=== PATIENT | male | born 1950 | race Caucasian/White ===

== ENCOUNTER 2024-08-25 09:05 | Inpatient (IN) | payer MEDICARE, OTHER ==
[~2024-08-25] VITALS: Ht 175.3 cm; Wt 101.2 kg
[2024-08-25] MEDS: FERROUS GLUCONATE 324 MG TAB PO SCH (09:00)
[2024-08-25] MEDS: FENOFIBRATE 145 MG TABLET PO SCH (09:00)
[2024-08-25] MEDS: CLOPIDOGREL 75 MG TAB PO SCH (09:00)
[2024-08-25] MEDS ORDERED: BISACODYL 5 MG TAB PO PRN (11:55)
[2024-08-25] MEDS ORDERED: DEXTROSE 50% 50 ML SYRINGE IV PRN ×2 (11:55→15:30)
[2024-08-25] MEDS ORDERED: BISACODYL 10 MG SUPP PR PRN (11:55)
[2024-08-25] MEDS ORDERED: GLUCOSE 4 GM CHEW PO PRN ×2 (11:55→15:30)
[2024-08-25] MEDS ORDERED: MOM 30 ML SUSPENSION UDC PO PRN (11:55)
[2024-08-25] MEDS ORDERED: SIMETHICONE 80MG CHEW TAB PO PRN (11:55)
[2024-08-25] MEDS ORDERED: MAALOX 30 ML SUSP *UDC PO PRN (11:55)
[2024-08-25] MEDS ORDERED: GLUCAGON INJ 1 MG VIAL SC PRN ×2 (11:55→15:30)
[2024-08-25] MEDS ORDERED: ONDANSETRON 4MG ORAL DISINTEGRATING TAB SL PRN (12:20)
[2024-08-25] MEDS: INSULIN LISPRO (NovoLOG) PER UNIT SC SCH ×2 (15:00→18:25)
[2024-08-25 15:10] VITALS: BP 158/69; TEMP 98.5; O2SAT 99
[2024-08-25] MEDS ORDERED: BISO5TAB14 PO (15:26)
[2024-08-25] MEDS ORDERED: INSUH10VL SC (15:26)
[2024-08-25] MEDS ORDERED: THERTAB52 PO (15:26)
[2024-08-25] MEDS ORDERED: ISOS1TAB36 PO (15:26)
[2024-08-25] MEDS ORDERED: ZINC220T6 PO (15:26)
[2024-08-25] MEDS ORDERED: JARD1TAB3 PO (15:26)
[2024-08-25] MEDS ORDERED: CLOP75TA2 PO (15:26)
[2024-08-25] MEDS ORDERED: NITR4TASL SL (15:26)
[2024-08-25] MEDS ORDERED: PANT-23 PO (15:26)
[2024-08-25] MEDS ORDERED: MIRA3350 PO (15:26)
[2024-08-25] MEDS ORDERED: GABA-1490 PO (15:26)
[2024-08-25] MEDS ORDERED: FENO145T7 PO (15:26)
[2024-08-25] MEDS ORDERED: ROSU40TA81 PO (15:26)
[2024-08-25] MEDS ORDERED: ASPI81TA26 PO (15:26)
[2024-08-25] MEDS ORDERED: ACET-861 PO (15:26)
[2024-08-25] MEDS ORDERED: METH-1165 PO (15:26)
[2024-08-25] MEDS ORDERED: LANTINJ4 SC (15:26)
[2024-08-25] MEDS ORDERED: HOME MED LIST COMPLETE! XX SCH (15:30)
[2024-08-25] MEDS: ENOXAPARIN 40 MG/0.4 ML SYRINGE (J1650 PER 10MG) SC SCH (18:25)
[2024-08-25 20:00] VITALS: BP 155/69; TEMP 98.8; O2SAT 98
[2024-08-25] MEDS: SENNOSIDES/DOCUSATE SODIUM 8.6 MG/50MG TAB PO SCH (20:41)
[2024-08-25] MEDS: ROSUVASTATIN 10 MG TAB PO SCH (20:42)
[2024-08-25] MEDS: GABAPENTIN 300 MG CAP PO SCH (20:42)
[2024-08-25] MEDS: LanTUS (INSULIN GLARGINE INJ) 1 UNITS/0.01 ML SC SCH (20:43)
[2024-08-25] MEDS: ACETAMINOPHEN 500 MG TAB PO SCH (20:45)
[2024-08-25] MEDS ORDERED: INSULIN LISPRO (NovoLOG) PER UNIT SC SCH (21:00)
[2024-08-26 04:00] VITALS: BP 128/55; TEMP 99.5; O2SAT 98
[2024-08-26] MEDS: PANTOPRAZOLE 40MG TAB PO SCH (06:05)
[2024-08-26 07:42] LABS: BASO # 0.1 10^3/uL (0.0-0.2); BASO % 1.1 % (0.0-1.0); EOS # 0.4 10^3/uL (0.0-0.5); EOS % 4.0 % (0.0-3.0); LYMPH # 1.7 10^3/uL (1.5-5.0); LYMPH % 18.4 % (24.0-44.0); MONO # 0.7 10^3/uL (0.0-0.8); MONO % 7.1 % (2.0-8.0); NEUTROPHILS # 6.2 10^3/uL (1.5-8.5); NEUTROPHILS % 68.2 % (36.0-66.0); PLATELET COUNT, AUTOMATED 327 10^3/uL (150-450)
[2024-08-26 08:06] LABS: ALT/SGPT 17.0 U/L (7.0-40); AST/SGOT 21.0 U/L (<34); CALCIUM LEVEL 8.8 MG/DL (8.3-10.6); CARBON DIOXIDE LEVEL 25.0 MMOL/L (20-31); CHLORIDE LEVEL 109.0 MMOL/L (98-107); CREATININE FOR GFR 1.37 MG/DL (0.70-1.30); GLOMERULAR FILTRATION RATE 53.5 (>42); POTASSIUM SERUM 4.3 MMOL/L (3.5-5.1); SODIUM LEVEL 145.0 MMOL/L (136-145)
[2024-08-26] MEDS: ASPIRIN 81 MG ENTERIC TABLET PO SCH (08:28)
[2024-08-26] MEDS: ISOSORBIDE MONONITRATE 60 MG XR TAB PO SCH (08:30)
[2024-08-26] MEDS: MIRALAX *UNIT DOSE* 17 GM PACKET PO SCH (08:31)
[2024-08-26] MEDS: ZINC SULFATE 220 MG CAP PO SCH (08:31)
[2024-08-26 12:00] VITALS: BP 145/66; TEMP 97.6; O2SAT 100
[2024-08-26 16:43] LABS: IRON (FE) 53.0 UG/DL (65-175); PERCENT SATURATION 16.9 % (19.7-50.0)
[2024-08-26 20:00] VITALS: BP 143/64; TEMP 97.2; O2SAT 99
[2024-08-27 04:00] VITALS: BP 150/63; TEMP 98.3; O2SAT 100
[2024-08-27 11:41] LABS: PLATELET COUNT, AUTOMATED 314 10^3/uL (150-450)
[2024-08-27 11:57] VITALS: BP 138/62; TEMP 97.9; O2SAT 100
[2024-08-27 20:15] VITALS: BP 146/66; TEMP 98.2; O2SAT 100
[2024-08-28 03:55] VITALS: BP 135/64; TEMP 97.7; O2SAT 96
[2024-08-28 12:00] VITALS: BP 133/61; TEMP 97.1; O2SAT 100
[2024-08-28] MEDS ORDERED: OXYC-517 PO (15:17)
[2024-08-28] MEDS ORDERED: PANT-23 PO (15:17)
[2024-08-28] MEDS ORDERED: FERR32TA PO (15:17)
[2024-08-28] MEDS ORDERED: CLOP75TA2 PO (15:17)
[2024-08-28] MEDS ORDERED: GABA-1490 PO (15:17)
[2024-08-28] MEDS ORDERED: METH-1165 PO (15:17)
[2024-08-28] MEDS ORDERED: ISOS1TAB36 PO (15:17)
[2024-08-28 19:58] VITALS: BP 114/56; TEMP 96.8; O2SAT 100
[2024-08-29 03:57] VITALS: BP 137/64; TEMP 97.3; O2SAT 98
[2024-08-29 07:58] VITALS: BP 137/64
[2024-08-29] MEDS: ACETAMINOPHEN 500 MG TAB PO PRN (09:21)
== END 2024-08-29 10:30 | disposition home or self-care (01) | DRG 301 ==
LOC: M PM&R 14:35
PROVIDERS: ADMIT Physical Medicine & Rehabilitation; ATTEND Physical Medicine & Rehabilitation
DX: I70.202 Unspecified atherosclerosis of native arteries of extremities, left leg (principal); Z89.512 Acquired absence of left leg below knee; I25.10 Atherosclerotic heart disease of native coronary artery without angina pectoris; I12.9 Hypertensive chronic kidney disease with stage 1 through stage 4 chronic kidney disease, or unspecified chronic kidney disease; E78.5 Hyperlipidemia, unspecified; E11.22 Type 2 diabetes mellitus with diabetic chronic kidney disease; N18.2 Chronic kidney disease, stage 2 (mild); E11.42 Type 2 diabetes mellitus with diabetic polyneuropathy; M10.9 Gout, unspecified; E11.51 Type 2 diabetes mellitus with diabetic peripheral angiopathy without gangrene; Z74.1 Need for assistance with personal care; Z74.09 Other reduced mobility; F43.10 Post-traumatic stress disorder, unspecified; M48.00 Spinal stenosis, site unspecified; K59.00 Constipation, unspecified; K21.9 Gastro-esophageal reflux disease without esophagitis; Z95.5 Presence of coronary angioplasty implant and graft; Z90.49 Acquired absence of other specified parts of digestive tract; Z85.038 Personal history of other malignant neoplasm of large intestine; Z95.828 Presence of other vascular implants and grafts; Z86.73 Personal history of transient ischemic attack (TIA), and cerebral infarction without residual deficits; Z79.82 Long term (current) use of aspirin; Z79.4 Long term (current) use of insulin; Z79.899 Other long term (current) drug therapy; Z88.8 Allergy status to other drugs, medicaments and biological substances; Z79.85 Long-term (current) use of injectable non-insulin antidiabetic drugs; Z89.421 Acquired absence of other right toe(s)